=== PATIENT | male | born 1970 | race Caucasian/White ===

== ENCOUNTER → 2023-10-17 | Outpatient (CLI) | payer BC, SELFPAY ==
[2023-10-17 16:20] LABS: Follicle Stimulating Hormone 5.9 mIU/mL; Luteinizing Hormone 6.3 mIU/mL; Prolactin 5.1 ng/mL; T4 Free Direct 0.89 ng/dL (0.76-1.46); Thyroid Stim Hormone (TSH) 1.63 uIU/mL (0.358-3.74)
[2023-10-23 12:10] LABS: Testosterone, % Free 3.18 % (1.50-4.20); Testosterone, Free 6.77 ng/dL (5.00-21.00); Testosterone, Total 213 ng/dL (264-916)
== END | disposition home or self-care (01) ==
PROVIDERS: Referring Provider Internal Medicine Endocrinology, Diabetes & Metabolism; Visit Provider Internal Medicine Endocrinology, Diabetes & Metabolism
DX: R79.89 Other specified abnormal findings of blood chemistry (principal)
CPT/HCPCS: 36415; 82533; 83001; 83002; 84146; 84402; 84403; 84439; 84443